=== PATIENT | female | born 2000 | race Caucasian/White ===

== ENCOUNTER 2021-02-08 13:48 | Emergency (ER) | payer OTHER ==
[~2021-02-08 13:48] MED LIST: CIPRO500 M1 PO; FLEXERIL10 MG PO; HYDROCODON-ACE1 EAC4 PO; MACROBID100 MG PO; MEDROL 4MG DOSEP4 MG PO; NAPROXEN500 MG PO; ONDANSETRON ODT4 MG SL
== END 2021-02-08 14:23 | disposition home or self-care (01) ==
LOC: FER 13:48
DX: Z71.1 Person with feared health complaint in whom no diagnosis is made (principal)
CPT/HCPCS: 99283

== ENCOUNTER 2021-05-17 16:14 | Emergency (ER) | payer OTHER | END 2021-05-17 17:01 | disposition home or self-care (01) | LOC: FER 16:14 | DX: B34.9 Viral infection, unspecified (principal); Z20.822 Contact with and (suspected) exposure to COVID-19 | CPT/HCPCS: 99282; U0002 ==

== ENCOUNTER 2022-02-09 06:35 | Emergency (ER) | payer OTHER ==
[2022-02-09 07:37] LABS: BASOPHIL 0.5 % (0-2); EOSINOPHIL 1.2 % (0-5); HCT 36.8 % (37.0-47.0); HGB 12.4 g/dl (12.5-16.0); LYMPHOCYTE 26.9 % (15-48); MCH 30.4 pg (25.0-31.0); MCHC 33.7 g/dL (32.0-36.0); MCV 90.2 fL (78.0-100.0); MONOCYTE 6.9 % (0-12); MPV 10.4 fL (6.0-9.5); NRBC 0; PLT 186 K/uL (150-400); RBC 4.08 M/uL (4.20-5.40); RDW 13.2 % (11.5-14.0); WBC 8.2 K/uL (4.0-10.5)
[2022-02-09 07:54] LABS: BILIRUBIN NEGATIVE (NEGATIVE); BLOOD NEGATIVE Ery/uL (NEGATIVE); CLARITY CLEAR (CLEAR); COLOR YELLOW (YELLOW); GLUCOSE (U) NORMAL (NORMAL); LEUKOCYTES NEGATIVE Leu/uL (NEGATIVE); NITRITE POSITIVE (NEGATIVE); PROTEIN NEGATIVE (NEGATIVE); SPECIFIC GRAVITY 1.025 (1.001-1.030); pH 6.5 (5.0-9.0)
[2022-02-09 08:01] LABS: BACTERIA 4+; SQUAMOUS EPITHELIAL CELLS 20-50
[2022-02-09 08:06] LABS: ALBUMIN 3.4 g/dL (3.4-5.0); BILIRUBIN - TOTAL 0.3 mg/dL (0.2-1.0); BUN/CREAT RATIO (CALC) 5.7 RATIO; CREATININE 0.53 mg/dL (0.51-0.95); POTASSIUM 3.8 mmol/L (3.5-5.1); TOTAL PROTEIN 6.4 g/dL (6.4-8.2)
[2022-02-09] MEDS ORDERED: MACROBID100 MG PO (09:22)
[2022-02-10 22:09] LABS: CHLAMYDIA TRACHOMATIS, NAA Negative (Negative); NEISSERIA GONORRHOEAE, NAA Negative (Negative)
== END 2022-02-09 09:42 | disposition home or self-care (01) ==
LOC: FER 06:35
PROVIDERS: Emergency Medicine
DX: O20.0 Threatened abortion (principal); O23.42 Unspecified infection of urinary tract in pregnancy, second trimester; Z3A.16 16 weeks gestation of pregnancy; Z28.310 Unvaccinated for COVID-19
CPT/HCPCS: 36415; 76805; 80053; 81001; 84702; 85025; 86900; 86901; 87076; 87088; 87186; 87210; 87491; 87591

== ENCOUNTER 2022-04-12 10:59 | Inpatient (IN) | payer OTHER ==
[~2022-04-12] VITALS: Ht 165.1 cm; Wt 86.6 kg
[2022-04-12 12:34] LABS: BASOPHIL 0.3 % (0-2); EOSINOPHIL 0.3 % (0-5); HGB 11.5 g/dl (12.5-16.0); MCH 31.3 pg (25.0-31.0); MCHC 33.8 g/dL (32.0-36.0); MCV 92.4 fL (78.0-100.0); MONOCYTE 4.6 % (0-12); MPV 10.7 fL (6.0-9.5); NRBC 0; PLT 198 K/uL (150-400); RBC 3.68 M/uL (4.20-5.40); RDW 13.3 % (11.5-14.0); WBC 14.4 K/uL (4.0-10.5)
[2022-04-12 12:44] LABS: BILIRUBIN NEGATIVE (NEGATIVE); BLOOD 2+ Ery/uL (NEGATIVE); CLARITY CLEAR (CLEAR); COLOR YELLOW (YELLOW); GLUCOSE (U) NORMAL (NORMAL); LEUKOCYTES 2+ Leu/uL (NEGATIVE); NITRITE NEGATIVE (NEGATIVE); PROTEIN TRACE (LOW) mg/dL (NEGATIVE); SPECIFIC GRAVITY >=1.030 (1.001-1.030)
[2022-04-12 12:47] LABS: ALBUMIN 2.9 g/dL (3.4-5.0); BILIRUBIN - TOTAL 0.2 mg/dL (0.2-1.0); BUN/CREAT RATIO (CALC) 11.1 RATIO; CREATININE 0.63 mg/dL (0.51-0.95); GLOBULIN (CALCULATION) 3.6 g/dL; POTASSIUM 3.7 mmol/L (3.5-5.1); TOTAL PROTEIN 6.5 g/dL (6.4-8.2)
[2022-04-12 12:53] LABS: AMPHETAMINES NEGATIVE (NEGATIVE); BARBITURATES NEGATIVE (NEGATIVE); ECSTASY (MDMA) NEGATIVE (NEGATIVE); MARIJUANA (THC) NEGATIVE (NEGATIVE); METHADONE NEGATIVE (NEGATIVE); OPIATES NEGATIVE (NEGATIVE); OXYCODONE NEGATIVE (NEGATIVE)
[2022-04-12 12:55] LABS: BACTERIA 2+
[2022-04-13 07:12] LABS: BASOPHIL 0.2 % (0-2); EOSINOPHIL 0.1 % (0-5); HCT 27.4 % (37.0-47.0); HGB 9.2 g/dl (12.5-16.0); MCH 31.7 pg (25.0-31.0); MCHC 33.6 g/dL (32.0-36.0); MCV 94.5 fL (78.0-100.0); MONOCYTE 4.6 % (0-12); MPV 10.6 fL (6.0-9.5); NRBC 0; PLT 124 K/uL (150-400); RDW 13.5 % (11.5-14.0); WBC 21.3 K/uL (4.0-10.5)
[2022-04-13 07:21] LABS: NEUTROPHIL 90.3 % (41-80)
[2022-04-13 07:29] LABS: BUN/CREAT RATIO (CALC) 10.3 RATIO; CREATININE 0.58 mg/dL (0.51-0.95); POTASSIUM 3.7 mmol/L (3.5-5.1)
[2022-04-14 06:32] LABS: BASOPHIL 0.5 % (0-2); EOSINOPHIL 0.9 % (0-5); HCT 26.8 % (37.0-47.0); HGB 8.9 g/dl (12.5-16.0); LYMPHOCYTE 8.7 % (15-48); MCH 31.6 pg (25.0-31.0); MCHC 33.2 g/dL (32.0-36.0); MONOCYTE 5.9 % (0-12); MPV 10.7 fL (6.0-9.5); NEUTROPHIL 83.1 % (41-80); NRBC 0; PLT 123 K/uL (150-400); RBC 2.82 M/uL (4.20-5.40); RDW 13.6 % (11.5-14.0); WBC 12.9 K/uL (4.0-10.5)
[2022-04-14 07:12] LABS: BUN/CREAT RATIO (CALC) 9.6 RATIO; CREATININE 0.52 mg/dL (0.51-0.95); POTASSIUM 3.2 mmol/L (3.5-5.1)
[2022-04-14] MEDS ORDERED: KEFLEX250 MG PO (12:06)
[2022-04-15 06:58] LABS: BASOPHIL 0.4 % (0-2); EOSINOPHIL 1.3 % (0-5); HCT 28.5 % (37.0-47.0); HGB 9.5 g/dl (12.5-16.0); LYMPHOCYTE 12.8 % (15-48); MCH 31.1 pg (25.0-31.0); MCHC 33.3 g/dL (32.0-36.0); MCV 93.4 fL (78.0-100.0); MONOCYTE 6.8 % (0-12); MPV 10.7 fL (6.0-9.5); NEUTROPHIL 77.7 % (41-80); NRBC 0; PLT 133 K/uL (150-400); RBC 3.05 M/uL (4.20-5.40); RDW 13.5 % (11.5-14.0); WBC 9.5 K/uL (4.0-10.5)
[2022-04-16 06:21] LABS: BASOPHIL 0.5 % (0-2); EOSINOPHIL 1.6 % (0-5); HCT 27.8 % (37.0-47.0); HGB 9.3 g/dl (12.5-16.0); LYMPHOCYTE 20.9 % (15-48); MCH 31.1 pg (25.0-31.0); MCHC 33.5 g/dL (32.0-36.0); MONOCYTE 6.6 % (0-12); MPV 10.8 fL (6.0-9.5); NEUTROPHIL 68.9 % (41-80); NRBC 0; PLT 146 K/uL (150-400); RBC 2.99 M/uL (4.20-5.40); RDW 13.1 % (11.5-14.0); WBC 7.6 K/uL (4.0-10.5)
[2022-04-16 07:16] LABS: BUN/CREAT RATIO (CALC) 13.5 RATIO; CREATININE 0.52 mg/dL (0.51-0.95); POTASSIUM 3.5 mmol/L (3.5-5.1)
--- NOTE | 2022-04-16 08:27 | NUR ---
PER SURI KRUSE, [facility] BLOOD AND PLASMA LABORATORY ASSISTANT, THE FOLLOWING OCCURRED: Patient in 24 - Ina "SW consulted due to the patient being a single mom and her child may need resources. CM met with the patient who said she had everything taken care of, her father would be watching her son while she was in the hospital and had no further needs."
--- NOTE | 2022-04-16 16:34 | NUR ---
Patient's left upper arm vein visualized using the [employer]. The site was marked with a surgical marker. The patient was draped and prepped in sterile fashion. The area was then numbed with 1 cc of 1 % Lidocaine. Time was given for Lidocaine to take effect. A 21 gauge needle was used to access the vein guided by the [employer] ultrasound. Blood return noted. The guide wire was advanced through the needle into the vein. The needle was removed and the tourniquet released. The midline was inserted over the guide wire and wire removed. Extension with saline lock attached to midline and flushes easily. Insertion site cleaned, stat lock and sterile dressing applied. Line flushes eaily. Report to CONRADO GERMAN.
[2022-04-16] MEDS ORDERED: FEOSOL325 MG PO (18:35)
[2022-04-16] MEDS ORDERED: FOLIC ACID1 MG PO (18:37)
[2022-04-16] MEDS ORDERED: VITAMIN D325 MC1 PO (18:38)
[2022-04-16] MEDS ORDERED: PRENATAL FORMU1 EACH PO (18:38)
== END 2022-04-16 19:03 | disposition home or self-care (01) | DRG 831 ==
LOC: FOD 10:59 → FOB 10:59 → FMS 10:59 → FICU 10:59 → FOB 11:00 → FMS 04-13 07:38 → FOD 04-15 11:02 → FMS 04-15 11:02 → FOD 04-15 14:00 → FMS 04-15 14:00 → FOD 04-16 14:19 → FMS 04-16 14:19 → FOD 04-16 14:50 → FMS 04-16 14:50
PROVIDERS: Allergy & Immunology Allergy; Internal Medicine; Obstetrics & Gynecology; ADMIT Specialist
PROC: 02HV33Z Insertion of Infusion Device into Superior Vena Cava, Percutaneous Approach (ICD-10-PCS; principal; 2022-04-16)
DX: O98.812 Other maternal infectious and parasitic diseases complicating pregnancy, second trimester (principal); A41.59 Other Gram-negative sepsis; O23.02 Infections of kidney in pregnancy, second trimester; Z16.39 Resistance to other specified antimicrobial drug; N13.6 Pyonephrosis; B96.1 Klebsiella pneumoniae [K. pneumoniae] as the cause of diseases classified elsewhere; Z3A.25 25 weeks gestation of pregnancy; Z20.822 Contact with and (suspected) exposure to COVID-19; O99.012 Anemia complicating pregnancy, second trimester; O99.282 Endocrine, nutritional and metabolic diseases complicating pregnancy, second trimester; E86.0 Dehydration; Z82.49 Family history of ischemic heart disease and other diseases of the circulatory system; Z90.49 Acquired absence of other specified parts of digestive tract
CPT/HCPCS: 36415; 76770; 80048; 80053; 80170; 80305; 81001; 83605; 84145; 85025; 87040; 87077; 87088; 87186; J0595; J0690; J0696; J1580; J2405; J2916; J7120; U0002